=== PATIENT | male | born 1990 | race Caucasian/White ===

== ENCOUNTER 2019-03-14 16:31 | Emergency (ER) | payer BC ==
[~2019-03-14] VITALS: Ht 170.2 cm; Wt 111.1 kg
[2019-03-14 16:34] VITALS: BP 158/107
--- NOTE | 2019-03-14 16:34 | NUR ---
PT BIB FRIEND C/O TONGUE NUMBNESS, PT IS AAOX4, NOT IN RESPIRATORY DISTRESS, HOOKED TO MONITOR, KEPT RESTED AND COMFORTABLE, WILL CONTINUE TO MONITOR.
--- NOTE | 2019-03-14 17:21 | NUR ---
PT SEEN AND EXAMINED BY EMMA MCMILLAN
[2019-03-14] MEDS ORDERED: diphenhydrAMINE HCL 25 MG CAPSULE ONE (17:28)
[2019-03-14] MEDS ORDERED: predniSONE 20 MG TABLET ONE (17:28)
[2019-03-14] MEDS ORDERED: DIPHENHYDRAMINE HCL 12.5 MG/5 ML UDC PO ONE (17:30)
[2019-03-14] MEDS ORDERED: predniSONE 10 MG TABLET PO ONE (17:30)
--- NOTE | 2019-03-14 18:17 | NUR ---
PACO MCMILLAN AT BEDSIDE FOR RE-EVAL.
--- NOTE | 2019-03-14 18:23 | NUR ---
Patient discharged to home in stable condition. Written and verbal after care instructions given. Patient verbalizes understanding of instruction.
== END 2019-03-14 18:24 | disposition home or self-care (01) ==
LOC: ER 16:35
DX: T78.40XA Allergy, unspecified, initial encounter (principal); I10 Essential (primary) hypertension; Z98.890 Other specified postprocedural states; X58.XXXA Exposure to other specified factors, initial encounter
CPT/HCPCS: 99283; J7512; Q0163 ×2

== ENCOUNTER 2019-03-15 23:43 | Emergency (ER) | payer BC ==
[~2019-03-15] VITALS: Ht 175.3 cm; Wt 108.9 kg
--- NOTE | 2019-03-15 23:52 | NUR ---
PT BIBS. C/O DIFFICULTY TO SWALLOW. "I FEEL LIKE AN AIR BUBBLE IN MY THROAT". PT HOOKED ON MONITOR AND PULSE OX. VSS. PT SPEAKING IN FULL SENTENCES. -SOB. NO ACUTE DISTRESS NOTED. WILL CONTINUE TO MONITOR.
[2019-03-16] MEDS ORDERED: FUROSEMIDE 20 MG/2 ML VIAL ONE (00:17)
[2019-03-16] MEDS ORDERED: FUROSEMIDE 20 MG/2 ML VIAL IV ONE (00:30)
--- NOTE | 2019-03-16 00:30 | NUR ---
XRAY AT BEDSIDE
[2019-03-16 00:33] LABS: BASOPHILS # (AUTO) 0.1 /CMM (0.0-0.2); BASOPHILS % (AUTO) 0.4 % (0.0-2.0); EOSINOPHILS % (AUTO) 0.8 % (0.0-6.0); HEMATOCRIT 47 % (39-51); HEMOGLOBIN 15.8 g/dL (13.5-17.5); LYMPHOCYTES % (AUTO) 28.9 % (20.0-44.0); MEAN CORPUSCULAR HGB CONC 34 g/dl (31.0-36.0); MEAN CORPUSCULAR VOLUME 90 fL (80-96); MONOCYTES # (AUTO) 1.3 /CMM (0.1-1.30); MONOCYTES % (AUTO) 9.5 % (2.0-12.0); NEUTROPHILS # (AUTO) 8.3 /CMM (1.8-8.9); NEUTROPHILS % (AUTO) 60.4 % (43.0-81.0); PLATELET COUNT (AUTO) 227 /CMM (150-450); RED BLOOD CELL COUNT(AUTO) 5.21 MIL/uL (4.5-6.0); WHITE BLOOD COUNT (AUTO) 13.8 K/uL (4.3-11.0)
[2019-03-16 00:47] LABS: CALCIUM, SERUM 9.5 mg/dL (8.5-10.1); CARBON DIOXIDE 27 mmol/L (21-32); CHLORIDE 99 mmol/L (98-107); CREATININE 0.8 mg/dL (0.6-1.3); GLUCOSE 120 mg/dL (74-106); POTASSIUM 3.3 mmol/L (3.5-5.1); SODIUM SERUM 135 mmol/L (136-145); UREA NITROGEN, BLOOD 12 mg/dL (7-18)
[2019-03-16 00:59] LABS: B-TYPE NATRIURETIC PEPTIDE 15 PG/ML (0-125)
--- NOTE | 2019-03-16 01:00 | NUR ---
Patient is resting comfortably in bed. Easily aroused. VSS.
--- NOTE | 2019-03-16 01:36 | NUR ---
Patient discharged to home in stable condition. Written and verbal after care instructions given. Patient verbalizes understanding of instruction. IV removed. Catheter intact and site benign. Pressure and 4x4 applied to site. No bleeding noted. Pt ambulatory with a steady gait
[2019-03-16 01:37] VITALS: BP 153/110
== END 2019-03-16 01:38 | disposition home or self-care (01) ==
LOC: ER 23:44
DX: I10 Essential (primary) hypertension (principal); F10.10 Alcohol abuse, uncomplicated; Y90.9 Presence of alcohol in blood, level not specified; Z98.890 Other specified postprocedural states
CPT/HCPCS: 36415; 70360; 71045; 80048; 80305; 83880; 84484; 85025; 93005 ×2; 96374; 99284; J1940